=== PATIENT | female | born 1945 | race Caucasian/White ===

== ENCOUNTER 2023-07-31 17:28 | Inpatient (IN) ==
[2023-07-31] MEDS ORDERED: IOPAMIDOL 100 ML BOTTLE IV ONE (17:29)
[2023-07-31] MEDS: PIPERACILLIN SODIUM/TAZOBACTAM 4.5 GM in DEXTROSE 5% IN WATER 50 ML IV ONE (20:22)
[2023-07-31 20:36] LABS: ALT/SGPT 13 U/L (<40); AST/SGOT 25 U/L (<32); Albumin 4.1 gm/dL (3.2-5.2); Albumin/Globulin Ratio 1.6 (1.0-2.3); Alkaline Phosphatase 83 U/L (39-117); Bilirubin,Total 1.5 mg/dL (0.1-1.0); Blood Urea Nitrogen 12 mg/dL (8-23); Calcium 9.1 mg/dL (8.6-10.4); Carbon Dioxide 24 mmol/L (22-30); Chloride 100 mmol/L (96-108); Globulin 2.6 gm/dL (2.2-3.7); Glomerular Filtration Rate 82; Glucose 90 mg/dL (70-105)
[2023-07-31] MEDS: diphenhydrAMINE 50 MG/ML VIAL IV ONE (20:42)
[2023-07-31 21:37] LABS: Basophils # (Auto) 0.14 K/mcL (0.00-0.30); Basophils % (Auto) 0.8 % (0.0-2.0); Eosinophils # (Auto) 0.03 K/mcL (0.00-0.70); Eosinophils % (Auto) 0.2 % (0.0-7.0); Hematocrit 43.6 % (34.1-44.9); Hemoglobin 14.2 g/dL (11.2-15.7); Lymphocytes # (Auto) 1.84 K/mcL (1.50-4.80); Lymphocytes % (Auto) 10.1 % (15.5-49.0); Mean Corpuscular HGB Conc 32.6 g/dL (31.0-36.0); Monocytes # (Auto) 1.47 K/mcL (0.10-0.90); Monocytes % (Auto) 8.1 % (1.0-12.0); Neutrophils % (Auto) 80.3 % (38.0-78.0); Platelet Count 243 K/mcL (140-440); RBC 4.79 M/mcL (3.59-5.38); Red Cell Distribution Width 14.5 % (11.5-14.5); WBC 18.2 K/mcL (4.5-11.0)
[2023-07-31] MEDS: ACETAMINOPHEN 1,000 MG/100 ML BAG IV ONE (23:06)
[2023-07-31] MEDS: 0.9 % SODIUM CHLORIDE 1,000 ML IV ONE (23:06)
[2023-08-01] MEDS: VANCOMYCIN 1,500 MG in 0.9 % SODIUM CHLORIDE 500 ML IV ONE (00:12)
[2023-08-01] MEDS: 0.9 % SODIUM CHLORIDE 1,000 ML IV SCH (00:12)
[2023-08-01] MEDS ORDERED: POTASSIUM CHLORIDE 20 MEQ TABLET PO PRN (08:30)
[2023-08-01] MEDS ORDERED: SENNOSIDES 1 TABLET PO PRN (08:30)
[2023-08-01] MEDS ORDERED: VANCOMYCIN PER PHARMACY IV SCH (08:30)
[2023-08-01] MEDS ORDERED: POTASSIUM CHLORIDE 40 MEQ in DEXTROSE 5% IN WATER 500 ML IV PRN (08:30)
[2023-08-01] MEDS ORDERED: MAGNESIUM SULFATE 2 GM/50 ML BAG IV PRN (08:30)
[2023-08-01] MEDS ORDERED: IPRATROPIUM/ALBUTEROL 3 ML AMPUL.NEB NEB PRN ×2 (08:30→17:18)
[2023-08-01] MEDS ORDERED: ACETAMINOPHEN W/CODEINE #3 1 TABLET PO PRN (08:30)
[2023-08-01] MEDS: VANCOMYCIN 1,500 MG in 0.9 % SODIUM CHLORIDE 500 ML IV SCH (09:50)
[2023-08-01] MEDS: DOCUSATE SODIUM 100 MG CAPSULE PO SCH (09:50)
[2023-08-01] MEDS: cefTRIAXone 1 GM VIAL IV SCH (09:50)
[2023-08-01] MEDS: morphine 4 MG/ML VIAL IV PRN (10:07)
[2023-08-01] MEDS ORDERED: GADOBENATE DIMEGLUMINE 20 ML/VIAL IV ONE (14:50)
[2023-08-01] MEDS ORDERED: fentaNYL 100 MCG/2 ML VIAL ONE (16:28)
[2023-08-01] MEDS ORDERED: PROPOFOL 200 MG/20 ML VIAL IV ONE (16:28)
[2023-08-01] MEDS: 0.9 % SODIUM CHLORIDE 10 ML SYRINGE IV SCH (16:30)
[2023-08-01] MEDS ORDERED: NALOXONE HCL 0.4 MG/ML VIAL IV PRN (17:18)
[2023-08-01] MEDS ORDERED: ONDANSETRON 4 MG/2 ML VIAL IV PRN (17:18)
[2023-08-01] MEDS ORDERED: fentaNYL 100 MCG/2 ML VIAL IV PRN (17:18)
[2023-08-01] MEDS: BUPIVACAINE 0.5% 50 ML VIAL IJ ONE (17:55)
[2023-08-01] MEDS: VANCOMYCIN 1 GM VIAL TOPICAL SCH (17:56)
[2023-08-01] MEDS ORDERED: 0.9 % SODIUM CHLORIDE 10 ML SYRINGE IV SCH (22:00)
[2023-08-02 06:30] LABS: Basophils # (Auto) 0.06 K/mcL (0.00-0.30); Basophils % (Auto) 0.4 % (0.0-2.0); Eosinophils # (Auto) 0.03 K/mcL (0.00-0.70); Eosinophils % (Auto) 0.2 % (0.0-7.0); Hematocrit 37.6 % (34.1-44.9); Hemoglobin 12.2 g/dL (11.2-15.7); Lymphocytes # (Auto) 1.54 K/mcL (1.50-4.80); Lymphocytes % (Auto) 10.2 % (15.5-49.0); Mean Cell Volume 91.7 fL (80.0-100.0); Mean Corpuscular HGB Conc 32.4 g/dL (31.0-36.0); Mean Platelet Volume 11.6 fL (8.8-12.5); Monocytes # (Auto) 1.07 K/mcL (0.10-0.90); Monocytes % (Auto) 7.1 % (1.0-12.0); Neutrophils % (Auto) 81.6 % (38.0-78.0); Platelet Count 167 K/mcL (140-440); WBC 15.1 K/mcL (4.5-11.0)
[2023-08-02 06:43] LABS: ALT/SGPT 6 U/L (<40); AST/SGOT 17 U/L (<32); Albumin 3.3 gm/dL (3.2-5.2); Albumin/Globulin Ratio 1.4 (1.0-2.3); Alkaline Phosphatase 76 U/L (39-117); Bilirubin,Direct 0.3 mg/dL (<0.3); Blood Urea Nitrogen 11 mg/dL (8-23); Calcium 8.1 mg/dL (8.6-10.4); Carbon Dioxide 21 mmol/L (22-30); Chloride 105 mmol/L (96-108); Globulin 2.3 gm/dL (2.2-3.7); Glomerular Filtration Rate 91; Glucose 96 mg/dL (70-105); Lactate Dehydrogenase 172 U/L (135-225); Phosphorous 2.6 mg/dL (2.5-4.5); Triglycerides 85 mg/dL (<150); Uric Acid 4.2 mg/dL (2.5-8.0)
[2023-08-02] MEDS: FUROSEMIDE 40 MG/4 ML VIAL IV ONE (09:11)
[2023-08-02] MEDS: ACETAMINOPHEN 325 MG TABLET PO PRN (10:31)
[2023-08-02] MEDS: ENOXAPARIN 40 MG/0.4 ML SYRINGE SQ SCH (11:22)
[2023-08-03 06:20] LABS: Basophils # (Auto) 0.07 K/mcL (0.00-0.30); Basophils % (Auto) 0.6 % (0.0-2.0); Eosinophils # (Auto) 0.24 K/mcL (0.00-0.70); Eosinophils % (Auto) 2.2 % (0.0-7.0); Hematocrit 35.6 % (34.1-44.9); Hemoglobin 11.7 g/dL (11.2-15.7); Lymphocytes # (Auto) 1.57 K/mcL (1.50-4.80); Lymphocytes % (Auto) 14.5 % (15.5-49.0); Mean Corpuscular HGB Conc 32.9 g/dL (31.0-36.0); Monocytes # (Auto) 0.82 K/mcL (0.10-0.90); Monocytes % (Auto) 7.6 % (1.0-12.0); Neutrophils % (Auto) 74.8 % (38.0-78.0); Platelet Count 226 K/mcL (140-440); Red Cell Distribution Width 14.7 % (11.5-14.5); WBC 10.8 K/mcL (4.5-11.0)
[2023-08-03 06:51] LABS: ALT/SGPT 9 U/L (<40); AST/SGOT 28 U/L (<32); Albumin 3.1 gm/dL (3.2-5.2); Albumin/Globulin Ratio 1.2 (1.0-2.3); Alkaline Phosphatase 75 U/L (39-117); Bilirubin,Direct 0.3 mg/dL (<0.3); Bilirubin,Total 0.9 mg/dL (0.1-1.0); Blood Urea Nitrogen 9 mg/dL (8-23); Calcium 8.3 mg/dL (8.6-10.4); Carbon Dioxide 22 mmol/L (22-30); Chloride 106 mmol/L (96-108); Globulin 2.6 gm/dL (2.2-3.7); Glomerular Filtration Rate 91; Glucose 89 mg/dL (70-105); Lactate Dehydrogenase 175 U/L (135-225); Phosphorous 2.1 mg/dL (2.5-4.5); Triglycerides 83 mg/dL (<150); Uric Acid 4.8 mg/dL (2.5-8.0)
[2023-08-03] MEDS: POTASSIUM CHLORIDE 20 MEQ TABLET PO PRN (08:59)
[2023-08-03] MEDS: POLYETHYLENE GLYCOL 3350 17 GM PACKET PO PRN (16:16)
[2023-08-03] MEDS: HYDROcodone/APAP 5/325MG TABLET PO PRN (19:12)
[2023-08-04] MEDS: ONDANSETRON 4 MG/2 ML VIAL IV PRN (01:48)
[2023-08-04] MEDS: amLODIPine 5 MG TABLET PO SCH (10:51)
== END 2023-08-04 14:15 | DRG 602 ==
LOC: ED 17:28 → MEDSUR 23:22
PROVIDERS: ADMIT Internal Medicine; ATTEND Internal Medicine